=== PATIENT | female | born 1990 | race African-American/Black ===

== ENCOUNTER 2019-09-30 12:30 | Emergency (ER) | payer BC, MEDICAID ==
[~2019-09-30] VITALS: Ht 170.2 cm; Wt 186.0 kg
[2019-09-30 13:13] VITALS: BP 155/98
[2019-09-30] MEDS ORDERED: KETOROLAC TROMETH 60MG/2ML VIAL IM ONE (13:45)
[2019-09-30] MEDS ORDERED: METHOCARBAMOL 500 MG TAB PO ONE (13:45)
== END 2019-09-30 14:48 | disposition home or self-care (01) ==
LOC: ER 12:30
DX: S39.012A Strain of muscle, fascia and tendon of lower back, initial encounter (principal); E66.01 Morbid (severe) obesity due to excess calories; Z68.44 Body mass index [BMI] 60.0-69.9, adult; X50.1XXA Overexertion from prolonged static or awkward postures, initial encounter; Y93.B2 Activity, push-ups, pull-ups, sit-ups; Y92.89 Other specified places as the place of occurrence of the external cause; Y99.8 Other external cause status
CPT/HCPCS: 96372; 99283; J1885

== ENCOUNTER 2019-11-07 10:54 | Emergency (ER) | payer MEDICAID ==
[~2019-11-07] VITALS: Ht 170.2 cm; Wt 226.8 kg
[2019-11-07] MEDS ORDERED: CLINDAMYCIN 900MG IV 50 ML IV ONE (12:00)
[2019-11-07] MEDS ORDERED: CLINDAMYCIN 600 MG/4 ML VL IM ONE (13:15)
[2019-11-07 13:16] LABS: Basophils # (auto) 0 uL; Basophils % (auto) 0.7 % (0.0-2.0); Eosinophils # (auto) 0.2 uL; Lymphocytes # (auto) 1.5 uL; Mean Corpuscular Hgb Conc. 31.2 g/dL (32.0-36.0); Monocytes # (auto) 0.3 uL; Monocytes % (auto) 5.1 % (0.0-12.0); Nucleated Red Blood Cells % 0.1 %
[2019-11-07 13:18] LABS: Eosinophils % (auto) 3.1 % (0.0-7.0); Hematocrit 34.4 % (36.0-46.0); Hemoglobin 10.7 g/dL (12.2-16.2); Mean Corpuscular Hemoglobin 23.2 pg (28.0-32.0); Mean Corpuscular Volume 74.3 fL (80.0-100.0); Neutrophils # (auto) 3.8 uL; Neutrophils % (auto) 65.1 % (37.0-80.0); Platelet Count (auto) 493 10^3/uL (140-450); Red Blood Cells 4.63 10^6/uL (4.0-5.20); Red Cell Distribution Width 18.2 % (11.8-14.3); White Blood Cell 5.8 10^3/uL (4.4-10.8)
[2019-11-07 13:46] LABS: Albumin 2.8 g/dL (3.4-5.0); Potassium 3.6 mmol/L (3.5-5.1)
[2019-11-07 13:53] LABS: BUN/Creatinine Ratio 17.2; Bilirubin, Total 0.2 mg/dL (0.2-1.0); CRP High Sensitivity 3.26 mg/dL (< 0.3); Total Protein 8.2 g/dL (6.4-8.2)
[2019-11-07 14:00] VITALS: BP 124/81
== END 2019-11-07 16:11 | disposition home or self-care (01) ==
LOC: ER 10:58
DX: L03.115 Cellulitis of right lower limb (principal)
CPT/HCPCS: 36415; 80053; 85025; 86141; 87040; 96372

== ENCOUNTER 2023-06-19 12:38 | Emergency (ER) | payer MEDICAID ==
[~2023-06-19] VITALS: Ht 170.2 cm; Wt 120.0 kg
[2023-06-19] MEDS ORDERED: KETOROLAC TROMETH 60MG/2ML VIAL IM ONE (13:30)
[2023-06-19 13:53] LABS: Basophils # (auto) 0.1 10 ^3/uL (0-0.2); Eosinophils # (auto) 0.4 10 ^3/uL (0-0.8); Lymphocytes # (auto) 1.9 10 ^3/uL (0.4-5.4)
[2023-06-19 13:55] LABS: Basophils % (auto) 1.2 % (0.0-2.0); Eosinophils % (auto) 5.1 % (0.0-7.0); Hematocrit 37.5 % (36.0-46.0); Hemoglobin 11.7 g/dL (12.2-16.2); Lymphocytes % (auto) 26.6 % (10.0-50.0); Mean Corpuscular Hemoglobin 24.7 pg (28.0-32.0); Mean Corpuscular Hgb Conc. 31.3 g/dL (32.0-36.0); Mean Corpuscular Volume 78.8 fL (80.0-100.0); Monocytes # (auto) 0.6 10 ^3/uL (0-1.3); Monocytes % (auto) 7.7 % (0.0-12.0); Neutrophils # (auto) 4.3 10 ^3/uL (1.6-8.6); Neutrophils % (auto) 59.4 % (37.0-80.0); Red Blood Cells 4.75 10^6/uL (4.0-5.20); Red Cell Distribution Width 16.8 % (11.8-14.3); White Blood Cell 7.2 10^3/uL (4.4-10.8)
[2023-06-19 14:04] LABS: Urine Bacteria NONE SEEN /hpf (None Seen); Urine Blood 3+ /uL (Negative); Urine Mucus FEW (None Seen); Urine Specific Gravity 1.025 (1.001-1.035); Urine WBC 4 /hpf (0 - 5)
[2023-06-19 14:11] VITALS: BP 136/103; PULSE 82; RESP 17; TEMP 98.7; O2SAT 99
[2023-06-19 14:11] LABS: Albumin 3.3 g/dL (3.4-5.0); Calcium 9.2 mg/dL (8.5-10.1); Potassium 4.6 mmol/L (3.5-5.1)
[2023-06-19 14:14] LABS: BUN/Creatinine Ratio 15.9 (10.0-20.0); Bilirubin, Total 0.2 mg/dL (0.2-1.0); Total Protein 7.9 g/dL (6.4-8.2)
[2023-06-19] MEDS ORDERED: TRAM50TA2 PO (14:44)
[2023-06-19] MEDS ORDERED: CIPR-173 PO (14:44)
== END 2023-06-19 15:39 | disposition home or self-care (01) ==
LOC: ER 12:38
DX: N39.0 Urinary tract infection, site not specified (principal); M79.18 Myalgia, other site; F17.210 Nicotine dependence, cigarettes, uncomplicated; J45.909 Unspecified asthma, uncomplicated; E11.9 Type 2 diabetes mellitus without complications; E66.01 Morbid (severe) obesity due to excess calories; Z68.41 Body mass index [BMI] 40.0-44.9, adult; Z32.02 Encounter for pregnancy test, result negative
CPT/HCPCS: 36415; 72100; 80053; 81001; 81025; 85025; 96372; 99284; J1885

== ENCOUNTER 2024-12-19 08:15 | Emergency (ER) | payer MEDICAID ==
[~2024-12-19] VITALS: Ht 157.5 cm; Wt 103.0 kg
[~2024-12-19 08:15] MED LIST: CIPR-173 PO; TRAM50TA2 PO
--- NOTE | 2024-12-19 09:19 | ED.PDOC ---
Musculoskeletal HPI Comments 34 year old female presents to the ED with a chief complaint of LT arm pain onset 4 days. Patient states she began experiencing LT arm pain 4 days ago and noticed pain worsen today. She is not able to raise arm or grab objects due to pain and is not able to sleep due to pain. PMHx of HTN, anxiety. Denies trauma, fall, injury, chest pain, shortness of breath, nausea, vomiting, diarrhea. No other symptoms or modifying factors present at this time. Chief Complaint: Upper Extremity Time Seen by MD: 08:52 Primary Care Provider: ? Reviewed Notes: Medications, Allergies Allergies: Coded Allergies: NO KNOWN ALLERGIES (Unverified , 11/07/19) Home Meds Active Scripts Ciprofloxacin Hcl (Cipro) 500 Mg Tab, 1 TAB PO BID, #14 TAB Prov:CHERYL MERRILL MD 06/19/23 Tramadol Hcl (Tramadol Hcl) 50 Mg Tab, 50 MG PO Q6HP PRN for 5 Days, #20 TAB Prov:CHERYL MERRILL MD 06/19/23 Mode of Arrival: Ambulatory Location: Left Extremity Location: Arm Timing: Days Prehospital treatment: None Severity: Moderate Able to Move Extremity: Yes Pain: Moderate Mechanism: None Onset of Symptoms: Spontaneous Symptoms: Pain DVT Risk Factors: NONE Associated signs and symptoms: Arm pain (LT) Past Medical History PAST MEDICAL HISTORY: Asthma, HTN Surgical History: Tonsillectomy IT SOLUTIONS ARCHITECT History: Denies all IT SOLUT[employer] ARCHITECT Hx Family History Family History: Family hx of DM, Family hx of Cancer, Family hx of heart christiano Social History Smoker: Cigarettes Alcohol: Occasionally Drugs: Denies Drug Use Lives In: Home Constitutional: denies: chills, diaphoresis, fatigue, fever, malaise, sweats, weakness, others EENTM: denies: blurred vision, double vision, ear bleeding, ear discharge, ear drainage, ear pain, ear ringing, eye pain, eye redness, hearing loss, mouth pain, mouth swelling, nasal discharge, nose bleeding, nose congestion, nose pain, photophobia, tearing, throat pain, throat swelling, voice changes, others Respiratory: denies: cough, hemoptysis, orthopnea, SOB at rest, shortness of breath, SOB with excertion, stridor, wheezing, others Cardiovascular: denies: chest pain, dizzy spells, diaphoresis, Dyspnea on exertion, edema, irregular heart beat, left arm pain, lightheadedness, palpitations, PND, syncope, others Gastrointestinal: denies: abdomen distended, abdominal pain, blood streaked bowels, constipated, diarrhea, dysphagia, difficulty swallowing, hematemesis, melena, nausea, poor appetite, poor fluid intake, rectal bleeding, rectal pain, vomiting, others Genitourinary: denies: abnormal vagina bleeding, burning, dyspareunia, dysuria, flank pain, frequency, hematuria, incontinence, pain, , vagina discharge, urgency, others Neurological: denies: dizziness, fainting, headache, left sided numbness, left sided weakness, numbness, paresthesia, pre-existing deficit, right sided numbness, right sided weakness, seizure, speech problems, tingling, tremors, weakness, others Musculoskeletal: reports: others (LT arm pain ); denies: back pain, gout, joint pain, joint swelling, muscle pain, muscle stiffness, neck pain Integumetry: denies: bruises, change in color, change in hair/nails, dryness, laceration, lesions, lumps, rash, wounds, others Allergic/Immunocompromised: denies: Difficulty Healing, Frequent Infections, Hives, Itching, others Hematologic/Lymphatic: denies: anemia, blood clots, easy bleeding, easy bruising, swollen glands, others Endocrine: denies: excessive hunger, excessive sweating, excessive thirst, excessive urination, flushing, intolerance to cold, intolerance to heat, unexp lained weight gain, unexplained weight loss, others Psychiatric: denies: anxiety, bipolar disorder, depression, hopeless, panic disorder, schizophrenia, sleepless, suicidal, others All Other Systems: Reviewed and Negative Physical Exam General Appearance: Moderate Distress HEENT: Normal ENT Inspection, Pharynx Normal, TMs Normal Neck: Full Range of Motion, Non-Tender, Normal, Normal Inspection Respiratory: Chest Non-Tender, Lungs Clear, No Accessory Muscle Use, No Respiratory Distress, Normal Breath Sounds Cardiovascular: No Edema, No JVD, No Murmur, No Gallop, Normal Peripheral Pulses, Regular Rate/Rhythm Breast Exam: Deferred Gastrointestinal: No Organomegaly, Non Tender, No Pulsatile Mass, Normal Bowel Sounds, Soft Genitalia: Deferred Pelvic: Deferred Rectal: Deferred Extremities: No calf tenderness, Normal capillary refill, Normal inspection, Normal range of motion, Non-tender, No pedal edema Musculoskeletal : Apperance: Normal Neurologic: Alert, psychology lecturer II-XII nml as Tested, No Motor Deficits, Normal Affect, Normal Mood, No Sensory Deficits Cerebellar Function: Normal Reflexes: Normal Skin: Dry, Normal Color, Warm Peripheral Pulses: 3+ Radial (R), 3+ Radial (L) Lymphatic: No Adenopathy Was a procedure done? Was a procedure done?: No Differential Diagnosis EXT Differential Diagnosis: Sprain, Strain X-Ray, Labs, Meds, VS Vital Signs Date Time Temp Pulse Resp B/P (MAP) Pulse Ox O2 Delivery O2 Flow Rate FiO2 12/19/24 08:32 98.4 89 17 107/89 (95) 97 12/19/24 08:[address] [place] [address] Ph: [phone] DIAGNOSTIC IMAGING Diagnostic Imaging Report : [id number] Signed PATIENT: KEIRA CARDOSO ACCT: [id number] UNIT: [id number] : 1990 LOC: ER ROOM / BED: / AGE / SEX: 34 / F ADM STATUS: REG ER SERVICE [id number] ORDERING PHYSICIAN: MÓNICA HEARN MD PROCEDURE(s): LSHD2 - L SHOULDER 2+ VIEW XRAY REASON: cuff ORDER NUMBER(s): [id number], ACCESSION NUMBER(s): [id number] EXAM: XY L SHOULDER 2+ VIEW XRAY HISTORY: cuff COMPARISON: None TECHNIQUE: 2 views of the left shoulder were performed. FINDINGS: No acute fracture or dislocation are identified about the left shoulder. There is mild acromioclavicular hypertrophy without significant loss of subacromial space. There are smoothly marginated calcifications along the posterior margin of the humeral head, likely within the infraspinatus or teres minor rotator cuff tendon. IMPRESSION: 1. No acute fracture of the left shoulder. 2. Calcific rotator cuff tendinopathy. This may be better characterized with noncontrast MRI of the left shoulder on a nonemergent basis the patient is MRI compatible. ATED BY: ROSALIND HYMAN MD DICTATED DATE/TIME: 12/19/24 1020 SIGNED BY: ROSALIND HYMNA MD SIGNED DATE/TIME: 12/19/24 1020 CC: Patient alert. Complaining of left shoulder pain. Vitals stable. Answering all questions. No trauma. X-ray of the shoulder does not show any acute fractures. Was given prescription of Motrin. Tendinopathy. Explained to the patient. Was told to follow up with her primary care physician. Was told to come back if there is any problem. Time of 1ST Reevaluation: 09:22 Reevaluation 1ST: Improved Patient Education/Counseling: Diagnosis, Treatment, Prognosis Family Education/Counseling: No Family Present Additional Information The following tests were ordered, and results were reviewed by me: SEBASTIAN Smith SHOULDER 2+ VIEW I reviewed and agreed with the following test results read by other providers: SEBASTIAN Smith SHOULDER 2+ VIEW I discussed treatment and results with medical personnel and patient Departure 1 Departure Time of Disposition: 12:08 Impression: Primary Impression: Tendinopathy Disposition: 01 HOME / SELF CARE / HOMELESS Condition: Good e-Prescriptions Ibuprofen Micronized (MOTRIN TABLET) 600 Mg Tb 600 MG PO TID PRN for 3 Days, #9 TAB *Black box warning-NSAIDS can increase risk of [place] & hypertension, GI irritation, ulceration, bleed, perferation. Do not use post cardiac surgery. Use short duration/lowest effective dose. Prov: MÓNICA HEARN MD 12/19/24 Discharged With: Self Critical Care Note Critical Care Time?: No Stability Stability form required: No Heart Score Heart Score: Heart Score Response (Comments) Value History N/A 0 EKG N/A 0 Age N/A 0 Risk Factors N/A 0 Troponin N/A 0 Total 0 I personally scribed for MÓNICA HEARN MD ([email or web address]) on 12/19/24 at 09:19. Electronically submitted by Deyanira Abdul ([email or web address]). I personally scribed for MÓNICA HEARN MD ([email or web address]) on 12/19/24 at 10:26. Electronically submitted by Deyanira Abdul ([email or web address]). I personally scribed for MÓNICA HEARN MD ([email or web address]) on 12/19/24 at 10:27. Electronically submitted by Deyanira Adbul ([email or web address]). MÓNICA HEARN MD Dec 19, 2024 09:19
--- NOTE | 2024-12-19 10:22 | DVH ---
EXAM: XY L SHOULDER 2+ VIEW XRAY HISTORY: cuff COMPARISON: None TECHNIQUE: 2 views of the left shoulder were performed. FINDINGS: No acute fracture or dislocation are identified about the left shoulder. There is mild acromioclavic ular hypertrophy without significant loss of subacromial space. There are smoothly marginated calcifi cations along the posterior margin of the humeral head, likely within the infraspinatus or teres lorri r rotator cuff tendon. IMPRESSION: 1. No acute fracture of the left shoulder. 2. Calcific rotator cuff tendinopathy. This may be better characterized with noncontrast MRI of the left shoulder on a nonemergent basis the patient is MRI compatible.
[2024-12-19] MEDS ORDERED: IBU600T PO (12:08)
[2024-12-19 12:33] VITALS: BP 126/68; PULSE 86; RESP 17; TEMP 99.9; O2SAT 100
== END 2024-12-19 12:43 | disposition home or self-care (01) ==
LOC: ER 08:15
DX: M77.8 Other enthesopathies, not elsewhere classified (principal); J45.909 Unspecified asthma, uncomplicated; I10 Essential (primary) hypertension; F17.210 Nicotine dependence, cigarettes, uncomplicated; Z90.89 Acquired absence of other organs; Z79.899 Other long term (current) drug therapy
CPT/HCPCS: 73030